=== PATIENT | male | born 1995 | race African-American/Black ===

== ENCOUNTER 2021-01-21 17:41 | Emergency (ER) | payer MEDICAID ==
[~2021-01-21] VITALS: Ht 188 cm; Wt 155.0 kg
[2021-01-21] MEDS ORDERED: IPRATROPIUM BROMIDE (0.02%) 0.5MG/2.5ML NEB HHN STA (18:24)
[2021-01-21] MEDS ORDERED: PREDNISONE 20MG TABLET PO STA (18:24)
[2021-01-21] MEDS ORDERED: ALBUTEROL (0.083%) 2.5MG/3ML NEB HHN STA (18:24)
[2021-01-21] MEDS ORDERED: AZIT500T3 MT (19:16)
[2021-01-21] MEDS ORDERED: P50 MT (19:16)
[2021-01-21] MEDS ORDERED: ALBU6.7H9 INH (19:16)
[2021-01-21] MEDS ORDERED: PRED15SO23 MT (19:36)
[2021-01-21] MEDS ORDERED: AZIT200S40 MT (19:40)
[2021-01-21] MEDS ORDERED: AZITHROMYCIN 40MG/ML SUSP 5ML ORAL SYR PO ONE (19:45)
[2021-01-21] MEDS ORDERED: PREDNISOLONE 15MG/5ML ORAL SYR PO ONE (19:45)
[2021-01-21 20:00] VITALS: BP 144/74
[2021-01-21] MEDS ORDERED: AZITHROMYCIN 500 MG TABLET PO ONE (20:00)
== END 2021-01-21 20:10 | disposition home or self-care (01) ==
LOC: ER 17:41
DX: J42 Unspecified chronic bronchitis (principal); J45.909 Unspecified asthma, uncomplicated; Z79.899 Other long term (current) drug therapy
CPT/HCPCS: 71045; 94640; 99283; J7510; J7512; Z7610

== ENCOUNTER 2021-01-27 18:15 | Emergency (ER) | payer MEDICAID ==
[~2021-01-27] VITALS: Ht 188 cm; Wt 163.0 kg
[~2021-01-27 18:15] MED LIST: ALBU6.7H9 INH; AZIT200S40 MT; PRED15SO23 MT
[2021-01-27 21:25] VITALS: BP 121/78
[2021-01-27] MEDS ORDERED: FLUT15.844 BOTHNSTRLS (21:27)
[2021-01-27] MEDS ORDERED: DEXTL MT (21:27)
== END 2021-01-27 21:43 | disposition home or self-care (01) ==
LOC: ER 18:15
DX: J40 Bronchitis, not specified as acute or chronic (principal); I10 Essential (primary) hypertension; Z98.890 Other specified postprocedural states
CPT/HCPCS: 99281

== ENCOUNTER 2023-05-29 17:47 | Emergency (ER) | payer MEDICAID, OTHER ==
[~2023-05-29] VITALS: Ht 193 cm; Wt 152.0 kg
[~2023-05-29 17:47] MED LIST changes: +ALBU6.7H3 INH; -ALBU6.7H9 INH; +DEXTL MT; +FLUT15.844 BOTHNSTRLS; -PRED15SO23 MT; +PRED15SO74 MT
[2023-05-29 18:02] VITALS: BP 180/97; PULSE 57; RESP 20; TEMP 98.7; O2SAT 100
[2023-05-29 18:37] LABS: BASOPHILS % 0.3 % (0.0-2.0); EOSINOPHILS % 0.4 % (0.0-5.0); HEMATOCRIT. 45.1 % (42.0-52.0); HEMOGLOBIN. 14.9 g/dL (14.0-18.0); LYMPHOCYTES % 20.1 % (20.0-50.0); MEAN CORPUSCULAR HEMOGLOBIN 27.2 pg (28.0-32.0); MEAN CORPUSCULAR HGB CONC 33.1 g/dL (31.0-37.0); MEAN CORPUSCULAR VOLUME 82.1 fL (80.0-94.0); MEAN PLATELET VOLUME 8.5 fl (7.4-10.4); MONOCYTES % 6.8 % (2.0-8.0); NEUTROPHILS % 72.4 % (40.0-76.0); PLATELET 288 x1000/uL (130-400); RED BLOOD CELL COUNT 5.49 mill/uL (4.7-6.1); RED CELL DISTRIBUTION WIDTH 13.4 % (11.6-14.6); WHITE BLOOD COUNT 14.3 x1000/uL (4.5-11.0)
[2023-05-29 18:41] LABS: CHLORIDE 102 mEq/L (98-107); INDEX HEMOLYSI 1 (1-3); INDEX ICTERIC 1 (1-4); INDEX LIPEMIC 1 (1-3); POTASSIUM 3.5 mEq/L (3.5-5.1); SODIUM 136 mEq/L (136-145)
[2023-05-29 18:46] LABS: CLARITY URINE CLEAR (CLEAR); COLOR URINE YELLOW (YELLOW); GLUCOSE URINE NEGATIVE (NEGATIVE); KETONES URINE NEGATIVE (NEGATIVE); LEUKOCYTE ESTERASE URINE TRACE (NEGATIVE); NITRITE URINE NEGATIVE (NEGATIVE); OCCULT BLOOD URINE 2+ (NEGATIVE); PH URINE 5.5 (4.5-8.0); PROTEIN URINE TRACE (NEGATIVE); SPECIFIC GRAVITY URINE 1.018 (1.005-1.030); UROBILINOGEN URINE 0.2 E.U./dL (0.2-1.0)
[2023-05-29 18:48] LABS: YEAST URINE NONE SEEN
[2023-05-29 18:49] LABS: ALANINE AMINOTRANSFERASE 54 IU/L (13-61); ALBUMIN 3.7 g/dL (3.4-5.0); ASPARTATE AMINOTRANSFERASE 26 IU/L (15-37); BILIRUBIN TOTAL 0.5 mg/dL (0.1-1.0); CALCIUM 8.7 mg/dL (8.5-10.1); CARBON DIOXIDE 28 mEq/L (21-32); CREATININE 1.1 mg/dL (0.6-1.3); GLUCOSE 124 mg/dL (70-105); UREA NITROGEN BLOOD 14 mg/dL (7-21)
[2023-05-29 19:23] LABS: BACTERIA URINE TRACE; SQUAMOUS EPITHELIAL CELL URINE FEW /lpf (RARE/1+)
== END 2023-05-30 00:59 | disposition left against medical advice (07) ==
LOC: ER 17:55
DX: R10.9 Unspecified abdominal pain (principal); E11.9 Type 2 diabetes mellitus without complications; I10 Essential (primary) hypertension
CPT/HCPCS: 36415; 80053; 81003; 85025; 99283